=== PATIENT | female | born 1950 | race Caucasian/White ===

== ENCOUNTER 2020-03-21 07:02 | Outpatient (REF) | payer MEDICARE, OTHER, SELFPAY | END 2020-03-21 07:03 | disposition home or self-care (01) | LOC: HO.LAB 07:02 | PROVIDERS: PCP Internal Medicine; Visit Provider Internal Medicine | DX: Z20.828 Contact with and (suspected) exposure to other viral communicable diseases (principal) | CPT/HCPCS: 87635 ==

== ENCOUNTER 2025-04-23 15:03 | Outpatient (REF) | payer MEDICARE, OTHER, SELFPAY ==
--- NOTE | ~2025-04-23 | MM_ITS ---
STUDY: DUAL ENERGY X-RAY ABSORPTIOMETRY / DXA REASON FOR EXAM: Female, 75 years old OSTEOPOROSIS TECHNIQUE: Bone Mineral Density (BMD) measurements of the lumbar spine and left hip were obtained using [employer] COMPARISON: None FINDINGS: L1-L4 BMD: 0.984 g/cm2 L1-L4 T score: -1.6. This corresponds to osteopenia. Left femoral neck BMD: 0.775 g/cm2 Left femoral neck T score: -1.9. This corresponds to osteopenia. Left total hip BMD: 0.927 g/cm2 Left total hip T score: -0.6. This corresponds to normal bone density. FRAX score: 10 year risk of major osteoporotic fracture 20.1%, 10 year risk of hip fracture 4.8% MM/XR DEXA axial skeleton IMPRESSION: Osteopenia Reference Information: The T-score is the number of standard deviations above or below the standard which is normal for young adults at their peak bone mineral density. The World Health Organization (WHO) interprets the T-scores as follows: At or above -1 SD Normal bone density Between -1 and -2.5 SD Osteopenia At or below -2.5 SD Osteoporosis Electronically signed by: Samir Ramos MD 04/23/2025 04:26 PM [facility]
--- OUTSIDE RECORDS SUMMARY | 2025-04-23 18:23 | XMS_ITS | Patient Health Record ---
Author Organization [facility] Address [address] [place] [address] Care Team Providers Care Medical Assistant Prn Name Role Phone Jaja Sampson Primary Care Provider Holden Zarate Unavailable [phone] Reason For Referral No Information Medications Medication SIG (Take, Route, Fr equency, Duration) Notes Start Date End Date Status Lovastatin 40 MG 1 tablet with a meal Orally Once a day Active Cephalexin 500 MG 1 capsule Orally sriram ry 8 hrs; Duration: 10 days Active Problems No Known Problems Plan Of Treatment Pending Test Test Name Order Date 47691- I&D ABSCESS-COMPLICATED,MULTI Insurance Providers Payer Name Payer Address Payer Phone Subscriber Number Group Number Insured Name Patient Relationship to Insured Coverage Start Date Coverage End Date Medicare [employer] [address] [place] [address] [id number] Larisa Yo Self - patient is the insured for Life [address] [place] [id number] Larisa Yo Self - patient is the insured 2 Medical (General) History Medical History History ICD Code Broken bones - Rt leg, Lt Ankle Chicken pox Measles Joint implants/screws Cholesterol Cataracts covid-19 Surgical History Surgery Date(Month/Year) Broken ankle, left 2002 Broken leg, right 2011
== END 2025-04-23 15:04 | disposition home or self-care (01) ==
LOC: HO.MAMMO 15:03
PROVIDERS: PCP Nurse Practitioner Family; Visit Provider Pediatrics
DX: Z13.820 Encounter for screening for osteoporosis (principal); Z78.0 Asymptomatic menopausal state
CPT/HCPCS: 77080

== ENCOUNTER → 2025-04-23 15:30 | Outpatient (BNV) | payer MEDICARE, OTHER, SELFPAY | PROVIDERS: PCP Nurse Practitioner Family; Visit Provider Radiology Body Imaging | DX: E28.39 Other primary ovarian failure (principal) | CPT/HCPCS: 77080 ==